=== PATIENT | female | born 1945 ===

== ENCOUNTER 2021-02-24 07:21 | Observation (INO) ==
[~2021-02-24 07:21] MED LIST: Buffered Lidocaine 1% SYRIN 1 ml INTRADERM ONE; Lactated Ringers 1000 ml BAG 1,000 ML IV SCH; Lidocaine 1% MPF 5 ML VIAL ONE
[2021-02-24] MEDS ORDERED: Clindamycin 900 MG/D5W BAG 900 MG/50 ML BAG IVPB ONE (07:42)
[2021-02-24] MEDS ORDERED: Buffered Lidocaine 1% SYRIN 1 ml INTRADERM ONE (07:42)
[2021-02-24] MEDS ORDERED: Bupivacaine 0.5% SDV PF 30ML VIAL ONE (08:34)
[2021-02-24] MEDS ORDERED: Dexamethasone IV 4 MG/ML VIAL 1 ml VIAL ONE (08:34)
[2021-02-24] MEDS ORDERED: Midazolam 2 mg/2 ml VIAL 1 mg/ml 2 ml VIAL (2 mg) ONE ×2 (08:34→09:50)
[2021-02-24 08:46] LABS: Hematocrit 39 % (35-47); Hemoglobin 13.4 g/dL (12.0-16.0); Mean Corpuscular HGB Conc 34 g/dL (31-36); Mean Corpuscular Hemoglobin 33 pg (27-31); Mean Corpuscular Volume 96 fL (80-97); Mean Platelet Volume 6.4 fL (7.4-10.4); Platelet Count 233 10^3/uL (150-450); Red Blood Count 4.09 10^6 /uL (3.70-4.87); Red Cell Distribution Width 13 % (10-15); White Blood Count 4.3 10^3/uL (3.5-10.8)
[2021-02-24 08:55] LABS: INR 0.95 (0.86-1.15)
[2021-02-24] MEDS ORDERED: fentaNYL 250 mcg/5 ml 50 MCG/ML 5 ml VIAL (250 MCG) ONE (09:50)
[2021-02-24] MEDS ORDERED: fentaNYL 100 mcg/2 ml 50 MCG/ML VIAL ONE (09:51)
[2021-02-24] MEDS ORDERED: Ropivacaine 5 MG/ML 20 ML VIAL 0.5% (100 MG) ONE (10:09)
[2021-02-24] MEDS ORDERED: Propofol 10 MG/ML 20 ML BTL ONE ×2 (11:15)
[2021-02-24] MEDS ORDERED: Lidocaine 2% PF 5 ML VIAL ONE (11:15)
[2021-02-24] MEDS ORDERED: diPHENhydraMINE 25 mg TAB PO PRN (12:23)
[2021-02-24] MEDS ORDERED: Ondansetron 4 mg VIAL 2 MG/ML 2 ml VIAL IV PRN (12:23)
[2021-02-24] MEDS ORDERED: Ondansetron ODT 4 mg TAB 4 MG TAB PO PRN (12:23)
[2021-02-24] MEDS ORDERED: Lactulose 30 ml UDC PO PRN (12:23)
[2021-02-24] MEDS ORDERED: Morphine 2 MG/ML SYRINGE IV PRN (12:23)
[2021-02-24] MEDS ORDERED: oxyCODONE/Acetamin 5/325 mg TAB PO PRN (12:23)
[2021-02-24] MEDS ORDERED: diPHENhydraMINE IV 50 MG/ML 1 ml VIAL (BENADRYL) IV PRN ×2 (12:23→12:43)
[2021-02-24] MEDS ORDERED: Magnesium Hydroxide LIQ 30 ML UDC PO PRN (12:23)
[2021-02-24] MEDS ORDERED: fentaNYL 100 mcg/2 ml 50 MCG/ML VIAL IV PRN (12:43)
[2021-02-24] MEDS ORDERED: DiMENhydriNATE IV 50 mg/ml 1 ml VIAL IV PUSH PRN (12:43)
[2021-02-24] MEDS ORDERED: Naloxone 0.4 mg VIAL 0.4 mg/ml 1 ml VIAL IV PRN (12:43)
[2021-02-24] MEDS ORDERED: Phenylephrine 40 mcg/mL 10mL (400mcg) SYRINGE ONE (12:52)
[2021-02-24] MEDS ORDERED: ceFAZolin 1 GM ADVAN 1 GM in NS 0.9% 50 ML 50 ML IVPB SCH (13:00)
[2021-02-24] MEDS: Lactated Ringers 1000 ml BAG 1,000 ML IV SCH (13:57)
[2021-02-24] MEDS: Clindamycin 900 MG/50 **NS BAG 900 MG/50 ML BAG IV SCH (18:30)
[2021-02-24] MEDS: Magnesium Hydroxide LIQ 30 ML UDC PO SCH (22:44)
[2021-02-25] MEDS: Lactated Ringers 1000 ml BAG 1,000 ML IV SCH (01:40)
[2021-02-25] MEDS: Clindamycin 900 MG/50 **NS BAG 900 MG/50 ML BAG IV SCH ×2 (02:44→10:31)
[2021-02-25 06:21] LABS: Hematocrit 37 % (35-47); Hemoglobin 12.7 g/dL (12.0-16.0); Platelet Count 220 10^3/uL (150-450)
[2021-02-25 06:37] LABS: Calcium 8.7 mg/dL (8.6-10.3); EGFR African American 116.3 (>60); EGFR Non-African American 96.1 (>60); Potassium 4.2 mmol/L (3.5-5.0)
[2021-02-25] MEDS: Magnesium Hydroxide LIQ 30 ML UDC PO SCH (07:46)
[2021-02-25] MEDS ORDERED: Vitamin THERAPEUTIC TAB PO SCH (09:00)
[2021-02-25 11:11] VITALS: BP 102/65
== END 2021-02-25 14:20 | disposition home or self-care (01) ==
LOC: OR 07:21 → SSU 07:21 → EDSTATUS 09:30
PROVIDERS: ADMIT Orthopaedic Surgery Adult Reconstructive Orthopaedic Surgery; ATTEND Orthopaedic Surgery Adult Reconstructive Orthopaedic Surgery

== ENCOUNTER 2022-01-21 06:24 | Observation (INO) ==
[~2022-01-21 06:24] MED LIST changes: -Lidocaine 1% MPF 5 ML VIAL ONE; +Naloxone 0.4 mg VIAL 0.4 mg/ml 1 ml VIAL IV PRN; +Ondansetron 4 mg VIAL 2 MG/ML 2 ml VIAL IV PRN; +fentaNYL 100 mcg/2 ml 50 MCG/ML VIAL IV PRN
[2022-01-21] MEDS ORDERED: Clindamycin 900 MG/D5W BAG 900 MG/50 ML BAG IVPB ONE (06:55)
[2022-01-21] MEDS ORDERED: ROPIVACAINE 5 MG/ML 30 ML BTL (0.5%) ONE (07:26)
[2022-01-21] MEDS ORDERED: Lidocaine 1% MPF 5 ML VIAL ONE (07:30)
[2022-01-21] MEDS ORDERED: Dexamethasone IV 4 MG/ML VIAL 1 ml VIAL ONE ×2 (07:47→08:15)
[2022-01-21] MEDS ORDERED: Midazolam 2 mg/2 ml VIAL 1 mg/ml 2 ml VIAL (2 mg) ONE (07:50)
[2022-01-21] MEDS ORDERED: Phenylephrine IV 10 MG/ML 1 ml VIAL ONE (07:58)
[2022-01-21] MEDS ORDERED: EPHEDrine (Pressors) 50 MG/ML VIAL ONE (08:06)
[2022-01-21] MEDS ORDERED: Acetaminophen IV 1 GM/100ML 100 ML IV ONE (08:15)
[2022-01-21] MEDS ORDERED: fentaNYL 100 mcg/2 ml 50 MCG/ML VIAL ONE ×2 (08:15→09:20)
[2022-01-21] MEDS ORDERED: Bupivacaine 0.5% PF 10 ML SDV VIAL INJ ONE (08:15)
[2022-01-21] MEDS ORDERED: Ondansetron 4 mg VIAL 2 MG/ML 2 ml VIAL ONE (08:15)
[2022-01-21] MEDS ORDERED: Propofol 10 mg/ml 100 ML BTL 100 ML ONE (08:39)
[2022-01-21] MEDS ORDERED: Lidocaine 1% 50 ML MDV VIAL ONE (09:03)
[2022-01-21] MEDS ORDERED: Bupivacaine 0.25% SDV PF 10 ML VIAL INJ ONE (09:03)
[2022-01-21] MEDS ORDERED: Ondansetron ODT 4 mg TAB 4 MG TAB PO PRN (10:57)
[2022-01-21] MEDS ORDERED: Magnesium Hydroxide LIQ 30 ML UDC PO PRN (10:57)
[2022-01-21] MEDS ORDERED: Lactulose 30 ml UDC PO PRN (10:57)
[2022-01-21] MEDS ORDERED: Ondansetron 4 mg VIAL 2 MG/ML 2 ml VIAL IV PRN (10:57)
[2022-01-21] MEDS ORDERED: Morphine 2 MG/ML SYRINGE IV PRN (11:04)
[2022-01-21] MEDS: Lactated Ringers 1000 ml BAG 1,000 ML IV SCH (13:03)
[2022-01-21] MEDS: Clindamycin 600 MG/D5W BAG 600 MG/50 ML BAG IV SCH (17:10)
[2022-01-21] MEDS: Magnesium Hydroxide LIQ 30 ML UDC PO SCH (20:39)
[2022-01-21] MEDS ORDERED: CMCS: Simvastatin 20 mg TAB (NF) PO SCH (21:00)
[2022-01-22] MEDS: Lactated Ringers 1000 ml BAG 1,000 ML IV SCH (00:03)
[2022-01-22] MEDS: Clindamycin 600 MG/D5W BAG 600 MG/50 ML BAG IV SCH ×2 (00:57→08:28)
[2022-01-22 05:53] LABS: Hematocrit 34 % (35-47); Hemoglobin 11.8 g/dL (12.0-16.0); Mean Platelet Volume 6.8 fL (7.4-10.4); Platelet Count 219 10^3/uL (150-450)
[2022-01-22 06:13] LABS: Calcium 8.5 mg/dL (8.6-10.3); Potassium 4.3 mmol/L (3.5-5.0); eGFR CKD-EPI 93.8 (>60)
[2022-01-22] MEDS: Magnesium Hydroxide LIQ 30 ML UDC PO SCH (08:27)
[2022-01-22] MEDS ORDERED: Vitamin THERAPEUTIC TAB PO SCH (09:00)
[2022-01-22 12:30] VITALS: BP 103/65
== END 2022-01-22 13:20 | disposition home or self-care (01) ==
LOC: INTOOBSV 06:24 → AA 06:24 → SSU 13:10
PROVIDERS: ADMIT Orthopaedic Surgery Adult Reconstructive Orthopaedic Surgery; ATTEND Orthopaedic Surgery Adult Reconstructive Orthopaedic Surgery